=== PATIENT | female | born 1980 | race Caucasian/White ===

== ENCOUNTER 2021-11-20 17:57 | Emergency (ER) | payer MEDICAID ==
[~2021-11-20] VITALS: Ht 167.6 cm; Wt 63.5 kg
[2021-11-20 18:19] VITALS: BP_SYST 165
[2021-11-20 19:02] LABS: BILIRUBIN,URINE NEGATIVE (NEGATIVE); CLARITY/URINE CLEAR (CLEAR); COLOR,URINE YELLOW (YELLOW); GLUCOSE,URINE NEGATIVE (NEGATIVE); KETONES,URINE NEGATIVE (NEGATIVE); LEUKOCYTE ESTERASE ,URINE NEGATIVE (NEGATIVE); NITRITE, URINE NEGATIVE (NEGATIVE); PH,URINE 6.5 (5.0-8.0); PROTEIN URINE 1+ (NEGATIVE); UROBILINOGEN,URINE 0.2 (0.2-1.0)
[2021-11-20 19:10] LABS: BASOPHILS % (AUTO) 0.6 % (0.0-2.0); EOSINOPHILS % (AUTO) 0.6 % (0.0-4.0); HEMATOCRIT 30.7 % (36-48); HEMOGLOBIN 9.8 g/dL (12.0-16.0); LYMPHOCYTES # (AUTO) 0.7 K/uL (1.0-5.5); LYMPHOCYTES % (AUTO) 12.2 % (20.5-51.5); MEAN CORPUSCULAR HEMOGLOBIN 24 pg (27-31); MEAN CORPUSCULAR HGB CONC 32 % (32-36); MEAN CORPUSCULAR VOLUME 76 fL (79.0-98.0); MONOCYTES # (AUTO) 0.4 K/uL (0.0-1.0); MONOCYTES % (AUTO) 7.6 % (1.7-9.3); NEUTROPHILS # (AUTO) 4.5 K/uL (1.8-7.7); PLATELET COUNT (AUTO) 248 K/uL (130-430); RED BLOOD CELL COUNT(AUTO) 4.03 MIL/uL (4.2-6.2); RED CELL DISTRIBUTION WIDTH 18.5 % (9.0-15.0); WHITE BLOOD COUNT (AUTO) 5.7 K/uL (4.8-10.8)
[2021-11-20 19:15] LABS: ANION GAP 11 (5-15); CHLORIDE 103 mmol/L (98-107); CREATININE 0.81 mg/dL (0.55-1.30); GLUCOSE 104 mg/dL (70-99); SODIUM SERUM 138 mmol/L (136-145); UREA NITROGEN, BLOOD 10 mg/dL (8-21)
[2021-11-20 19:18] LABS: BARBITURATE, URINE NEGATIVE (NEG <=200); BENZODIAZEPINE, URINE NEGATIVE (NEG <=150); CANNABINOID, URINE NEGATIVE (NEG <=50); COCAINE, URINE NEGATIVE (NEG <=150); METHAMPHETAMINES SCREEN,URINE POSITIVE (NEG <=500); OPIATE, URINE NEGATIVE (NEG <=100); PHENCYCLIDINE SCREEN,URINE NEGATIVE (NEG <=25); UR TRICYCLIC ANTIDEPRESSANTS NEGATIVE (NEG <=300); URINE AMPHETAMINE NEGATIVE (NEG <=500); URINE METHADONE NEGATIVE (NEG <=200); URINE OXYCODONE SCREEN NEGATIVE (NEG <=100); URINE PROPOXYPHENE SCREEN NEGATIVE (NEG <=300)
[2021-11-20 19:20] LABS: ALANINE AMINOTRANSFERASE 85 U/L (12-78); ALBUMIN 3.1 g/dL (3.4-4.8); ALCOHOL, BLOOD 151 mg/dL (<10); ASPARTATE AMINOTRANSFERASE 71 U/L (10-37); TOTAL BILIRUBIN 0.2 mg/dL (0.0-1.0)
[2021-11-20 19:24] LABS: CALCIUM 8.5 mg/dL (8.4-11.0)
[2021-11-20 19:25] LABS: POTASSIUM 2.9 mmol/L (3.5-5.1)
[2021-11-20 19:26] LABS: GFR AFRICAN AMERICAN 107 mL/min (>90)
[2021-11-20 19:29] LABS: ACETAMINOPHEN < 1 ug/mL (1-30)
[2021-11-20] MEDS ORDERED: MAGNESIUM SULFATE 50 ML IV ONE (19:30)
[2021-11-20] MEDS ORDERED: POTASSIUM CHLORIDE 20 MEQ TAB.PRT.SR PO ONE ×2 (19:30→22:15)
[2021-11-20 19:33] LABS: BLOOD, URINE TRACE (NEGATIVE)
[2021-11-20 19:36] LABS: BACTERIA,URINE FEW /HPF (None Seen); MUCUS,URINE None Seen /LPF (None Seen); RBC,URINE NONE SEEN /HPF (0-3); WBC,URINE 0-3 /HPF (0-3)
[2021-11-20 19:49] LABS: CKMB RELATIVE INDEX 1.6 (0.0-2.9); CREATINE KINASE MB 4.4 ng/mL (0-3.6)
[2021-11-20] MEDS ORDERED: LORazepam 2 MG/ML VIAL IVP ONE (20:00)
[2021-11-20] MEDS ORDERED: HALOPERIDOL LACTATE 5 MG/ML VIAL IM ONE (20:00)
[2021-11-20] MEDS ORDERED: KETAMINE 30 MG/3 ML SYRINGE IVP ONE (20:00)
[2021-11-20] MEDS ORDERED: KCL 30mEq in D5/0.45NS 1000 mL 1,000 ML IV ONE (21:15)
[2021-11-20] MEDS ORDERED: KCL 20 mEq in 100 mL (PREMIX) 100 ML IV ONE ×3 (21:15→21:45)
[2021-11-20] MEDS ORDERED: POTASSIUM CHLORIDE 20 MEQ TAB.PRT.SR ONE (22:12)
[2021-11-20 22:15] VITALS: BP_SYST 129
== END 2021-11-20 23:28 ==
LOC: EDBD 17:57 → SED 17:57
DX: F15.129 Other stimulant abuse with intoxication, unspecified (principal); F10.129 Alcohol abuse with intoxication, unspecified; E87.6 Hypokalemia; R74.01 Elevation of levels of liver transaminase levels; Z79.899 Other long term (current) drug therapy; Z20.822 Contact with and (suspected) exposure to COVID-19
CPT/HCPCS: 99284; 96365; 70450; 96375; 96367; 87426; 80307; 80053; 82550; 82553; 84702; 85025; 36415; 76376; 81000; G0480; J2060; J3475; J3480; G0481; G0482